=== PATIENT | female | born 1975 | race Native Hawaiian/Other Pacific Islander ===

== ENCOUNTER 2020-07-24 16:42 | Outpatient (CLI) | payer OTHER ==
[2020-07-24 17:09] LABS: PLATELET COUNT 346 K/uL (152-353)
[2020-07-24 17:23] LABS: POTASSIUM 4.2 mmol/L (3.6-5.2)
== END 2020-07-24 22:31 | disposition home or self-care (01) ==
LOC: LAB 16:42
PROVIDERS: ATTEND Nurse Practitioner Family
DX: Z00.00 Encounter for general adult medical examination without abnormal findings (principal); E78.49 Other hyperlipidemia; E03.8 Other specified hypothyroidism; G47.00 Insomnia, unspecified; E55.9 Vitamin D deficiency, unspecified; F41.1 Generalized anxiety disorder; Z79.899 Other long term (current) drug therapy; R53.83 Other fatigue; R53.81 Other malaise
CPT/HCPCS: 80053; 80061; 83036; 84439; 84443; 85027